=== PATIENT | female | born 1995 | race American Indian/Alaskan Native ===

== ENCOUNTER 2019-08-24 16:13 | Emergency (ER) | payer SELFPAY ==
[2019-08-24 16:26] VITALS: BP 123/72
--- NOTE | 2019-08-24 16:30 | Event Note ---
ED Screening Note Date of service: 08/24/19 Time: 16:24 ED Screening Note: This is a 23 y.o. F. that presents to the ER with vaginal bleeding. Patient reports history of nexplanon control x 1 year. + vaginal bleeding and pelvic pain - clots States she never experienced vaginal bleeding like this before. This initial assessment/diagnostic orders/clinical plan/treatment(s) is/are subject to change based on patients health status, clinical progression and re- assessment by fellow clinical providers in the ED. Further treatment and workup at subsequent clinical providers discretion. Patient/guardian urged not to elope from the ED as their condition may be serious if not clinically assessed and managed. Initial orders include: Labs US transvaginal
[2019-08-24 17:24] LABS: HCG Qualitative,Urine Negative (Negative)
[2019-08-24 17:26] LABS: Bilirubin,Urine NEG (Negative); Blood,Urine MOD (Negative); Color,Urine Yellow (Yellow); Mucus,Urine FEW /HPF
--- NOTE | 2019-08-24 18:45 | Ultrasound Report ---
Pelvic Ultrasound HISTORY: vaginal bleeding and pelvic pain. TECHNIQUE: Grayscale and color Doppler imaging performed. COMPARISON: None FINDINGS: Transabdominal and endovaginal imaging performed. Uterus measures 7.8 x 3.8 x 6.1 cm. Ovaries are both normal in size and appearance. There is trace si mple pelvic free fluid. A few tiny ovarian follicles are present and there is preserved ovarian blood flow. IMPRESSION: Unremarkable exam. Signer Name: Matthew Turpin MD Signed: 08/24/2019 6:40 PM Workstation Name: [id number]
--- NOTE | 2019-08-24 18:59 | Emergency Department Report ---
ED Female HPI - General Chief complaint: Vaginal Bleeding Stated complaint: ABD PAIN/BLOOD CLOTS Time Seen by Provider: 08/24/19 16:24 Source: patient Mode of arrival: Ambulatory Limitations: No Limitations - History of Present Illness Initial comments: This is a 23-year-old female with no problems medical history presents to ED complaining of vaginal bleeding intermittently for the past 2 months. Patient states that she has a splint on important -control in her arm for almost 2 years now. Patient states that vaginal bleeding nausea and light and today it was a bit heavier so she got worried and came in. Patient states prior to that she had no cycle for the last 2-3 months. She denies abdominal pain, fever, nausea vomiting, headache blurred vision or any other symptoms. MD Complaint: vaginal bleeding - Related Data Previous Rx's Medication Instructions Recorded Last Taken Type Ibuprofen [Motrin] 800 mg PO Q8HR #30 tablet 08/24/19 Unknown Rx Allergies Allergy/AdvReac Type Severity Reaction Status Date / Time No Known Allergies Allergy Unverified 08/24/19 16:18 ED Review of Systems ROS: Stated complaint: ABD PAIN/BLOOD CLOTS Other details as noted in HPI Comment: All other systems reviewed and negative ED Past Medical Hx - Past Medical History Previous Medical History?: No - Surgical History Past Surgical History?: No - Social History Smoking Status: Never Smoker - Medications Home Medications: Home Medications Medication Instructions Recorded Confirmed Last Taken Type Ibuprofen [Motrin] 800 mg PO Q8HR #30 tablet 08/24/19 Unknown Rx ED Physical Exam - General Limitations: No Limitations General appearance: alert, in no apparent distress - Head Head exam: Present: atraumatic, normocephalic - Eye Eye exam: Present: normal appearance - ENT ENT exam: Present: mucous membranes moist - Neck Neck exam: Present: normal inspection - Respiratory Respiratory exam: Present: normal lung sounds bilaterally. Absent: respiratory distress - Cardiovascular Cardiovascular Exam: Present: regular rate, normal rhythm. Absent: systolic murmur, diastolic murmur, rubs, gallop - GI/Abdominal GI/Abdominal exam: Present: soft, normal bowel sounds. Absent: distended, tenderness, guarding - Extremities Exam Extremities exam: Present: normal inspection - Back Exam Back exam: Present: normal inspection - Neurological Exam Neurological exam: Present: alert, oriented X3 - Psychiatric Psychiatric exam: Present: normal affect, normal mood - Skin Skin exam: Present: warm, dry, intact, normal color. Absent: rash ED Course Vital Signs 08/24/19 16:24 Temperature 98.7 F Pulse Rate 83 Respiratory 18 Rate Blood Pressure 123/72 O2 Sat by Pulse 100 Oximetry ED Medical Decision Making - Radiology Data Radiology results: report reviewed, image reviewed Pelvic Ultrasound HISTORY: vaginal bleeding and pelvic pain. TECHNIQUE: Grayscale and color Doppler imaging performed. COMPARISON: None FINDINGS: Transabdominal and endovaginal imaging performed. Uterus measures 7.8 x 3.8 x 6.1 cm. Ovaries are both normal in size and appearance. There is trace simple pelvic free fluid. A few tiny ovarian follicles are present and there is preserved ovarian blood flow. IMPRESSION: Unremarkable exam. Signer Name: Matthew Turpin MD Signed: 08/24/2019 6:40 PM Workstation Name: [id number] Transcribed By: HELENA Dictated By: Matthew Turpin MD Electronically Authenticated By: Matthew Turpin MD Signed Date/Time: 08/24/19 1840 - Medical Decision Making 23-year-old female presents with intramenstrual vaginal bleeding. Urinalysis and test negative. Pelvic ultrasound shows no acute findings. Discussed findings with the patient. Discussed the patient follow-up with [employer] doctor. Vital signs are normal patient is in no acute distress. Patient understands instructions as given. Patient states she'll make an ap pointment with her [employer] to follow-up. Discussed Motrin as an effort cramping, Critical care attestation.: If time is entered above; I have spent that time in minutes in the direct care of this critically ill patient, excluding procedure time. ED Disposition Clinical Impression: Menometrorrhagia Disposition: DC-01 TO HOME OR SELFCARE Is pt being admited?: No Does the pt Need Aspirin: No Condition: Stable Instructions: Menorrhagia (ED) Additional Instructions: Make sure to follow up with the primary care physician as discussed. Take all your medications as you've been prescribed. If you have any worsening symptoms or develop new symptoms please return to ED immediately. Prescriptions: Ibuprofen [Motrin] 800 mg PO Q8HR #30 tablet Referrals: [facility] [Outside] - 3-5 Days [facility] [Outside] - 3-5 Days [facility] [Outside] - 3-5 Days Forms: Work/School Release Form(ED) Time of Disposition: 19:06
== END 2019-08-24 19:48 | disposition home or self-care (01) ==
LOC: ED 16:13
DX: N92.1 Excessive and frequent menstruation with irregular cycle (principal); Z79.899 Other long term (current) drug therapy
CPT/HCPCS: 76830; 76856; 81001; 81025